=== PATIENT | female | born 1985 | race Hispanic/Latino ===

== ENCOUNTER 2024-03-24 00:55 | Emergency (ER) | payer OTHER ==
[~2024-03-24] VITALS: Ht 180.3 cm; Wt 149.7 kg
[2024-03-24] MEDS ORDERED: SODIUM CHLORIDE 0.9% 1,000 ML IV ONE (01:30)
[2024-03-24] MEDS ORDERED: KETOROLAC TROMETHAMINE 30 MG/ML VIAL IV ONE (01:30)
[2024-03-24] MEDS ORDERED: ondansetron HCL 4 MG/2 ML VIAL IV ONE (01:30)
[2024-03-24 01:45] LABS: BASOPHILS 0.4 % (0-2); EOSINOPHILS 1.9 % (0-6); HEMATOCRIT 31.8 % (35.0-50.0); HEMOGLOBIN 10.4 g/dL (12.0-18.0); LYMPHOCYTES 24.1 % (24-44); MCH 24.9 (27-36); MCHC 32.6 g/dl (30-36); MCV 76.4 fl (81-99); MONOCYTES 8.5 % (0-12); NEUTROPHILS 65.1 % (39-80); PLATELET COUNT 264 K/uL (140-440); RBC 4.16 M/ul (4.3-5.7); RDW 16.8 (10.5-15.0)
[2024-03-24 01:57] LABS: ALBUMIN/GLOBULIN RATIO 0.7 (1.1-2.4); ANION GAP 14.6 (7-21); BILIRUBIN, TOTAL 0.2 mg/dL (0.2-1.0); BUN/CREATININE RATIO 26.66 (6.0-28.6); CALCIUM 8.2 mg/dL (8.5-10.1); CREATININE, SERUM 0.45 mg/dL (0.55-1.02); POTASSIUM 3.6 mmol/L (3.5-5.1); PROTEIN, TOTAL 7.3 g/dL (6.4-8.2)
[2024-03-24 01:58] LABS: BILIRUBIN, URINE NEGATIVE (negative); BLOOD/HGB, URINE NEGATIVE (Negative); KETONE, URINE NEGATIVE (Negative); LEUK ESTERASE, URINE TRACE (negative); NITRITE, URINE NEGATIVE (negative); PH, URINE 5.5 (5-7)
[2024-03-24 02:19] LABS: EPITHELIAL CELLS, URINE SQUAMOUS 2+ /lpf (0-1+)
[2024-03-24 02:20] LABS: BACTERIA, URINE 1+ /hpf (negative); CASTS, URINE NONE SEEN \\lpf; COLLECTION TYPE, URINE CLEAN CATCH; CRYSTALS, URINE NONE SEEN (0-1+); REFLEX CULTURE, URINE No (No)
[2024-03-24] MEDS ORDERED: CEFDINIR 300 MG HOME.PACK PO ONE (02:30)
[2024-03-24] MEDS ORDERED: ONDANSETRON 4 MG HOME.PACK SL ONE (02:45)
[2024-03-24] MEDS ORDERED: HYDROCODONE BIT/ACETAMINOPHEN 5/325 MG 1 TAB HOME.PACK PO ONE (02:45)
[2024-03-24] MEDS ORDERED: CEFDINIR300 MG PO (02:53)
[2024-03-24] MEDS ORDERED: ONDANSETRON ODT8 MG PO (02:53)
[2024-03-24 03:00] VITALS: BP 143/84
== END 2024-03-24 03:00 | disposition home or self-care (01) ==
LOC: ED 00:55
PROVIDERS: Family Medicine
DX: N39.0 Urinary tract infection, site not specified (principal); I10 Essential (primary) hypertension; G47.30 Sleep apnea, unspecified
CPT/HCPCS: 36415; 74177; 80053; 81001; 83690; 84703; 85025; 96375; 99284-25; A9270; J1885; J2405; J7030

== ENCOUNTER 2024-10-08 13:29 | Emergency (ER) | payer OTHER ==
[~2024-10-08] VITALS: Ht 180.3 cm; Wt 151.1 kg
[~2024-10-08 13:29] MED LIST: CEFDINIR300 MG PO; ONDANSETRON ODT8 MG PO
[2024-10-08] MEDS ORDERED: LOSARTAN POTASS50 MG PO (13:51)
[2024-10-08] MEDS ORDERED: BETAMETHASONE D15 G2 TOP (13:51)
[2024-10-08] MEDS ORDERED: CITALOPRAM HBR20 MG PO (13:52)
[2024-10-08] MEDS ORDERED: LIRAGLUTID0.6 MG/0.1 SQ (13:52)
[2024-10-08] MEDS ORDERED: PAXLOVID 300-11 EAC1 PO (14:16)
[2024-10-08 14:59] VITALS: BP 154/89
== END 2024-10-08 15:02 | disposition home or self-care (01) ==
LOC: ED 13:29
DX: U07.1 COVID-19 (principal); I10 Essential (primary) hypertension; R73.03 Prediabetes; G47.30 Sleep apnea, unspecified; Z79.899 Other long term (current) drug therapy
CPT/HCPCS: 99283